=== PATIENT | female | born 1990 | race Caucasian/White ===

== ENCOUNTER 2022-12-18 09:49 | Day surgery (SDC) | payer MEDICAID, SELFPAY ==
[2022-12-18] VITALS (10 sets, daily range): BP systolic 100–146; BP diastolic 60–81; PULSE 80–104; RESP 14–18; TEMP 36.2; O2SAT 95–100
[2022-12-18 10:15] LABS: OR HCG Qualitative Urine Negative (Negative)
[2022-12-18] MEDS: scopolamine 1.5 Patch 1 PATCH TRANSDERMA (10:18)
[2022-12-18] MEDS: gabapentin 300 mg Capsule PO (10:18)
[2022-12-18] MEDS: CELEcoxib 200 mg Capsule 400 MG PO (10:18)
[2022-12-18] MEDS: phenazopyridine 100 mg Tablet 200 MG PO (10:19)
[2022-12-18] MEDS: acetaminophen 1,000 MG/100 ML PIGGYBACK 400 MG IV (10:22)
[2022-12-18] MEDS: sodium chloride 0.9% 1,000 ML 30 ML IV (10:23)
[2022-12-18 10:26] LABS: Glucose Point of Care 122 mg/dL (70-110)
--- NOTE | 2022-12-18 11:43 | W.PM.OPSUD ---
Surgery/Procedure H&P Update DATE OF PROCEDURE: December 18, 2022 DATE H&P PERFORMED: 12/13/22 H&P UPDATE INFORMATION: I have reviewed H&P completed within last 30 days, I have examined patient prior to procedure and No changes to prior documentation PREOP DIAGNOSIS: desires sterilization PLANNED PROCEDURE: Operation Date: 12/18/22 11:45 Proposed Procedures p Laparoscopic bilateral salpingectomy :93476,Z30.2(Bilateral) - Celeste Hines MD Related Problem List Diagnoses (1) Morbid obesity: (2) Sterilization consult:
[2022-12-18] MEDS: ceFAZolin 3,000 MG in sodium chloride 0.9% (100 ml) 100 ML 200 MG IV (12:27)
--- NOTE | 2022-12-18 12:51 | P.ANESASSM_ITS ---
Pre-Anesthetic Assessment Height/Weight: Height 1.57 m Weight 161.932 kg O2 Del Method Room Air 12/18/22 10:13 Preop Diagnosis: desires sterilization Operation Date: 12/18/22 11:45 Proposed Procedures p Laparoscopic bilateral salpingectomy :57017,Z30.2(Bilateral) - Celeste Hines MD Familial anesthetic complications: none Was Beta Carmelo taken within 24 hours: N/A Was Clonidine taken within 24 hours: N/A Last intake: Intake Last Liquid Date 12/17/22 Last Liquid Time 22:00 Last Solid Date 12/17/22 Last Solid Time 21:30 Social No alcohol and No tobacco Exam alert, oriented x 3, clear to auscultation bilaterally and regular rate & rhythm Airway Submandibular: within normal limits Cervical ROM: within normal limits Mallampati: Class II Dentition: full CV/HEM Hypertension Metabolic Diabetes Mellitus, Hyperlipidemia, Morbid Obesity and Thyroid Disease [facility] [place] Osteoarthritis/DJD Anesthetic Plan ASA status: 3 Anesthesia: General Medications/Allergies Home Medications Medication Instructions Recorded Confirmed Last Taken Type amlodipine 10 mg tablet 10 mg PO DAILY 11/28/22 12/18/22 12/17/22 History atorvastatin 20 mg tablet 20 mg PO DAILY 11/28/22 12/18/22 12/17/22 History dulaglutide 1.5 mg/0.5 mL 1.5 mg SUBCUT DIRECTED 11/28/22 12/18/22 12/13/22 History subcutaneous pen injector (Trulicity) etonogestrel 68 mg subdermal subdermal 11/28/22 12/13/22 Unknown History implant (Nexplanon) glipizide 5 mg tablet 5 mg PO DAILY 11/28/22 12/18/22 12/17/22 History levothyroxine 75 mcg capsule 75 mcg PO DAILY 11/28/22 12/18/22 12/17/22 History lisinopril 40 mg tablet 40 mg PO DAILY 11/28/22 12/18/22 12/17/22 History meloxicam 15 mg tablet 15 mg PO DAILY 11/28/22 12/18/22 12/17/22 History metformin 500 mg tablet 500 mg PO DAILY 11/28/22 12/18/22 12/17/22 History montelukast 10 mg tablet 10 mg PO DAILY 11/28/22 12/18/22 12/17/22 History Allergies Allergy/AdvReac Type Severity Reaction Status Date / Time sulfamethoxazole Allergy Hives Verified 12/18/22 10:06 [From Bactrim] trimethoprim [From Bactrim] Allergy Hives Verified 12/18/22 10:06 Current Medications Generic Name Dose Route Start Last Admin Trade Name Freq PRN Reason Stop Dose Admin Sodium Chloride 1,000 mls @ 30 mls/hr 12/18/22 10:00 12/18/22 10:23 Sodium Chloride 0.9% IV 12/19/22 09:59 30 mls/hr .Q24H DANNIELLE Administration PFSH Anesthesia Medical History Hypertension Hypothyroid Type 2 diabetes mellitus Surgical History Hx of section Hx of cholecystectomy Family History Mother Heart disease Hypercholesteremia Hypertension Denies family history of Colon cancer Ovarian cancer Diabetes Breast cancer Uterine cancer Thyroid disease Stroke Female Reproductive History Date of last menstrual period: 11/13/22 Data Anesthesia Cardiac Studies: No Data to Display
--- NOTE | 2022-12-18 14:15 | P.OP_ITS ---
Operative Report Date of procedure: December 18, 2022 Pre-op diagnosis: Preop Diagnosis desires sterilization Post-op diagnosis: same Post-op diagnosis: omental and pelvic adhesions. Post-op findings: 9 week sized uterus with omental and pelvic adhesions Procedure done: laparoscopic left salpingectomy and right fimbriectomy Specimens removed/disposition: left fallopian tube and right fimbria to pathology Surgeon: Celeste Hines Anesthesia: General Estimated blood loss (mL): 2 IV fluids (mL): 500 Urine output (mL): 75 Complications: none Condition: stable Disposition: PACU Procedure: The patient was taken to the operating room where general anesthesia was administered and found to be adequate. She was prepped and draped in the normal sterile fashion in the dorsal lithotomy position in [facility]. A Hamlin catheter was placed. A weighted speculum was placed into the vagina and the anterior lip of the cervix grasped with a single-tooth tenaculum. A [employer] uterine manipulator was placed. The gloves were changed and attention was turned to the laparoscopic portion of the case. A 5 mm left upper quadrant incision was made. The veres needle was inserted and hanging drop test performed. The saline went through the needle. The abdomen was insufflated. A 5 mm trocar was placed. Intra-abdominal placement was confirmed. Using direct visualization and illumination of the abdominal wall, two 5 mm incisions were made low and lateral. One on the left and one on the right. The 5mm trochars were then placed under direct visualization. Using the uterine manipulator and the grasper, the left fallopian tube was identified. The right tube wasn't visible. There was a prominent ovarian cyst, likely obscuring the view. It was also adherent to something inferior to the ovary. Using the laparoscopic cautery, the left fallopian tube was clamped cauterized and cut. It was removed through the port. At this time, a fourth port was placed under direct visualization, inferior to the umbilicus. The right ovary was much more visible with the new port. There was a small portion of fimbria present. there was no other fallopian tube portion there. The fimbria was removed in its entirety. There was a small portion of right fallopian tube attached to the uterus. This was cauterized several times. It wasn't removed, There appeared to be a fibroid in the broad ligament, inferior to the tubal segment. There was no way of removing the piece of tube, due to the fibroid. There was excellent hemostasis post removal of the specimens. Pictures were taken. All instruments were removed. The abdomen was desufflated. The incisions were closed with 4-0 Vicryl. 10 ml of 1/2% bupivicaine was used around the incisions. The patient tolerated the procedure well. Sponge lap and needle counts were correct x3. She was taken to the recovery room in stable condition.
[2022-12-18] MEDS: fentaNYL 50 mcg/mL INJ 2mL IVP (14:20)
--- NOTE | 2022-12-18 14:33 | PM.DCS ---
Discharge Providers Date of Admission: 12/18/22 Date of Discharge: December 18, 2022 Attending Provider at Discharge: Celeste Hines MD Primary Care Provider: ASIF Kitchen Diagnoses at Discharge Discharge Diagnosis (1) Morbid obesity: Status: Acute (2) Sterilization consult: Status: Acute Reason for Visit Reason for Visit: 38479 Z30.2 Hospital Course Hospital Course The patient was admitted for surgery. She did well postoperatively and was ready for discharge. Physical Exam Urinary Catheter Management: Hamlin: Cath Placed During This Visit: yes, but has since been removed by the nurse Urinary Catheter Date of Insertion: 12/18/22 Urinary Catheter Time of Insertion: 13:07 Date Urinary Catheter Removed: 12/18/22 Time Urinary Catheter Discontinued: 13:54 Discharge Data Studies Completed and Pending Pending at discharge Category Date Time Status Urine Culture Routine Lab 12/18/22 12:59 Received Pathology: Surgical [PTH] Routine Pth 12/18/22 13:52 Received Laboratory Results POC Glucose 122 mg/dL (70-110) H 12/18/22 10:25 Urine HCG, Qual Negative (Negative) 12/18/22 10:03 Vitals Last Vital Signs Temp 97.2 F L 12/18/22 14:12 Pulse 88 12/18/22 14:32 Resp 17 12/18/22 14:32 BP 117/81 12/18/22 14:32 Pulse Ox 98 12/18/22 14:32 O2 Del Method Room Air 12/18/22 14:32 Discharge Plan Discharge Patient Disposition: Home Condition: Stable Prescriptions: New hydrocodone-acetaminophen 5-325 mg tablet 1 tab PO Q6H Qty: 30 0RF Continued lisinopril 40 mg tablet 40 mg PO DAILY metformin 500 mg tablet 500 mg PO DAILY Trulicity 1.5 mg/0.5 mL pen injector 1.5 mg SUBCUT DIRECTED glipizide 5 mg tablet 5 mg PO DAILY atorvastatin 20 mg tablet 20 mg PO DAILY levothyroxine 75 mcg capsule 75 mcg PO DAILY montelukast 10 mg tablet 10 mg PO DAILY meloxicam 15 mg tablet 15 mg PO DAILY amlodipine 10 mg tablet 10 mg PO DAILY Nexplanon 68 mg implant subdermal Discharge Orders: Discharge Order (Routine); Ordered 12/18/22 Ordered By: Celeste Hines Discharge Attestations Time Spent in Discharge Care*: less than 30 min Quality Metrics Clinical Quality Measures [ No reported AMI, CVA or VTE this stay] Coding Level of Care Code Acute Code for Chg Fwd Diagnoses Morbid obesity E66.01 Sterilization consult Z30.09
[2022-12-18] MEDS: HYDROcodone-acetaminophen 5-325 mg Tablet 1 TAB PO (15:09)
--- NOTE | 2022-12-18 17:45 | ANE.PACU2 ---
Inpatient post-anesthesia follow up: Airway intact: Yes Vital signs: Temperature 97.2 F Pulse Rate 80 Respiratory Rate 17 Blood Pressure 131/72 Pulse Oximetry 98 Oxygen Delivery Me thod Room Air Oxygen Flow Rate Fraction of Inspir ed Oxygen Hydration adequate: Yes Nausea and vomiting: No Pain level: 3 Mental status: Baseline
== END 2022-12-18 15:55 | disposition home or self-care (01) ==
PROVIDERS: Anesthesiology; PCP Nurse Practitioner Family; Visit Provider Obstetrics & Gynecology
PROC: (CPT 58661; principal; 2022-12-18 11:35)
PROC: (CPT 58661; 2022-12-18 11:35)
DX: Z30.2 Encounter for sterilization (principal); N83.8 Other noninflammatory disorders of ovary, fallopian tube and broad ligament; E11.9 Type 2 diabetes mellitus without complications; I10 Essential (primary) hypertension; E03.9 Hypothyroidism, unspecified; E66.01 Morbid (severe) obesity due to excess calories; Z68.44 Body mass index [BMI] 60.0-69.9, adult; Z79.84 Long term (current) use of oral hypoglycemic drugs; Z79.85 Long-term (current) use of injectable non-insulin antidiabetic drugs; Z88.2 Allergy status to sulfonamides
CPT/HCPCS: 58661; 36416; 82962; 84703; 87086; 88302; J0131; J0330; J0690; J1100; J2405; J2704; J2710; J3010; J3490; J7030

== ENCOUNTER → 2023-03-07 11:13 | Outpatient (BNVA) | payer MEDICAID, SELFPAY | PROVIDERS: PCP Nurse Practitioner Family; Visit Provider Emergency Medicine | DX: S82.831A Other fracture of upper and lower end of right fibula, initial encounter for closed fracture (principal); Y93.01 Activity, walking, marching and hiking | CPT/HCPCS: 73610 ==

== ENCOUNTER → 2023-03-20 10:00 | Outpatient (BNVA) | payer MEDICAID, SELFPAY | PROVIDERS: PCP Nurse Practitioner Family; Visit Provider Nurse Practitioner Family | DX: M25.571 Pain in right ankle and joints of right foot (principal) | CPT/HCPCS: 73610 ==

== ENCOUNTER → 2023-03-27 14:51 | Outpatient (BNVA) | payer MEDICAID, SELFPAY | PROVIDERS: PCP Nurse Practitioner Family; Visit Provider Podiatrist Foot & Ankle Surgery | DX: S82.831A Other fracture of upper and lower end of right fibula, initial encounter for closed fracture; X50.1XXA Overexertion from prolonged static or awkward postures, initial encounter; E11.9 Type 2 diabetes mellitus without complications; Z79.84 Long term (current) use of oral hypoglycemic drugs | CPT/HCPCS: 73610 ==

== ENCOUNTER → 2023-04-09 08:35 | Outpatient (BNVA) | payer MEDICAID, SELFPAY | PROVIDERS: PCP Nurse Practitioner Family; Visit Provider Podiatrist Foot & Ankle Surgery | DX: M25.571 Pain in right ankle and joints of right foot (principal); S82.831A Other fracture of upper and lower end of right fibula, initial encounter for closed fracture; X50.9XXA Other and unspecified overexertion or strenuous movements or postures, initial encounter | CPT/HCPCS: 73610 ==